=== PATIENT | female | born 1960 | race American Indian/Alaskan Native ===

== ENCOUNTER 2016-09-20 06:45 | Day surgery (SDC) | payer MEDICAID, OTHER | END 2016-09-20 06:46 | disposition home or self-care (01) | LOC: GIO 06:45 | PROVIDERS: ATTEND Internal Medicine Gastroenterology | DX: Z12.11 Encounter for screening for malignant neoplasm of colon (principal); Z87.19 Personal history of other diseases of the digestive system; Z53.8 Procedure and treatment not carried out for other reasons ==

== ENCOUNTER 2016-11-30 08:03 | Inpatient (IN) | payer OTHER ==
--- NOTE | 2016-11-30 08:38 | XRay Report ---
LEFT SHOULDER, 3 VIEWS LEFT HUMERUS, 2 VIEWS History: Pain, injury. Findings: An anterior, inferior dislocation of the right glenohumeral joint is suspected. This may represent a partial dislocation. There is no evidence for fracture or bone lesion. Soft tissues are unremarkable. IMPRESSION: Dislocation or partial dislocation at the left glenohumeral joint.
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
[2016-11-30] MEDS ORDERED: DIPRIVAN 10 MG/ML IV ONE (11:06)
[2016-11-30] MEDS ORDERED: KETALAR IV ONE (11:06)
[2016-11-30] MEDS ORDERED: KETALAR ONE (11:11)
[2016-11-30] MEDS ORDERED: MORPHINE IV ONE (12:17)
--- NOTE | 2016-11-30 12:45 | XRay Report ---
LEFT SHOULDER, ONE VIEW History: Postreduction film. Findings: Partial dislocation versus inferior subluxation of the left glenohumeral joint is unchanged since earlier today at 1127 hrs. Impression: No change.
--- NOTE | 2016-11-30 12:45 | XRay Report ---
LEFT SHOULDER, ONE VIEW History: Postreduction film. Findings: Partial dislocation or inferior subluxation of the left glenohumeral joint is unchanged since earlier today at 0822 hrs. Impression: No change.
--- NOTE | 2016-11-30 12:58 | Admit Criteria Form ---
Admission Criteria Documentation: MUSCULOSKELETAL DISEASE GRG Clinical Indications for Admission to Inpatient Care (Place 'X' for any and all applicable criteria): Hospital admission is needed for appropriate care of the patient because of 1 or more of the following: [X]I. Fracture, dislocation, or other musculoskeletal injury requiring inpatient care(medical) as indicated by 1 or more of the following(4)(5)(6)(7) [ ]a) Vertebral fracture requiring observation for instability or neurologic compromise (8) [ ]b) Compartment syndrome (proven or cannot be ruled out during observation level of care) (9) [ ]c) Limb-threatening injury [ ]d) Major injury requiring inpatient stabilization such as traction initiation or external fixation before internal fixation or closure of complex or open fracture [X]e) Major injury requiring inpatient treatment after emergency or observation level care (as appropriate) []f) Severe pain requiring acute inpatient management [ ]g) Injury with suspicion of abuse or neglect (eg., child, dependent elderly) [ ]II. Newly diagnosed or suspected bone, joint, or orthopedic device infection (e.g., osteomyelitis, septic arthritis) needing 1 or more of the following(1)(2)(3) [ ]a) IV antibiotics that cannot be initiated in other than inpatient setting (e.g., patient too unstable or home infusion not available) [ ]b) Device removal or replacement [ ]c) Bone or soft tissue debridement [ ]d) Joint drainage (drain placement or repetitive aspirations) [ ]III. Severe rheumatologic disease (e.g., systemic lupus erythematosus, rheumatoid arthritis) with complications or comorbidities (Also use Optimal Recovery Care Criteria or General Recovery Criteria as appropriate on the basis of predominant condition), including 1 or more of the following( 10)(11)(12)(13) [ ]a) Severe infection (e.g., LINING SETTER infection, sepsis) (14) [ ]b) Respiratory complications, including 1 or more of the following : [ ]i) Pleural effusion with respiratory compromise [ ]ii) Pulmonary hypertension with congestive failure [ ]iii) Respiratory failure [ ]iv) Pulmonary hemorrhage (15) [ ]c) Hematologic disease, including 1 or more of the following: [ ]i) Coagulopathy with bleeding [ ]ii) Thrombosis with hypercoagulable state [ ]iii) Thrombotic thrombocytopenic purpura [ ]d) Cerebritis with seizures, psychosis, or other severe abnormalities [ ]e) Vertebral destruction with monitoring needed for cervical myelopathy& possible respiratory compromise [ ]f) Exacerbation that requires inpatient treatment (e.g., intravenous immunosuppression) (16) [ ]g) Acute renal failure [ ]h) Cerebritis with seizures, psychosis, Altered mental status, or other neurologic abnormalities [ ]i) Pericardial effusion with tamponade [ ]j) Vertebral destruction, with monitoring needed for cervical myelopathy and possible respiratory compromise [ ]IV. Severe vasculitis with complications or comorbidities (Also use Optimal Recovery Care Criteria General Recovery Criteria as appropriate on the basis of predominant condition), including 1 or more of the following(11)(12)(17)(18)(19)(20) [ ]a) Exacerbation that requires inpatient treatment (e.g., intravenous immunosuppression) (19)(21) [ ]b) Pulmonary hemorrhage (15) [ ]c) LINING SETTER vasculitis with seizures, psychosis, Altered mental status that is severe or persistent, or other severe abnormalities (22) [ ]d) Cerebral infarction [ ]e) Gastrointestinal ischemia [ ]f) Gangrene or threatened amputation [ ]g) Renal failure (16) [ ]h) Other significant complications of vasculitis ( eg., tissue or organ ischemia, organ dysfunction ) [ ]V. Severe myopathy as indicated by 1 or more of the following (28)(29) [ ]a) New onset of airway compromise or inability to swallow [ ]b) Respiratory deterioration with observation needed for impending respiratory failure [ ]c) Exacerbation that requires inpatient treatment (e.g., intravenous immunosuppression) [ ]. Severe crystal gout (arthropathy) indicated by 1 or more of the following (23)(24) [ ]a) Severe pain requiring acute inpatient management [ ]b) Exacerbation that requires inpatient treatment (e.g., intravenous treatment) [ ]VII.Rhabdomyolysis and 1 or more of the following (25)(26)(27) [ ]a) Acute renal failure [ ]b) Need for intravenous hydration after emergency or observation level care (as appropriate) [ ]c) Inability to maintain oral hydration [ ]d) Change in mental status [ ]e) Electrolyte abnormality that remains after emergency or observation level care (as appropriate) [ ]VIII Post amputation complication, as indicated by ANY ONE of the following [ ]a) Infection [ ]b) Dehiscence [ ]c) Myodesis failure [ ]IX. Severe pain requiring acute inpatient management due to musculoskeletal condition [ ]X. Musculoskeletal Disease and ALL of the following: [ ]a) Symptom or finding for which emergency and observation care have failed or are not considered appropriate (Use General Criteria: Observation Care as appropriate) [ ]b) Presence of ANY ONE of the following [ ]i) A General Admission Criteria [ ]ii) A Pediatric General Admission Criteria The original [facility] content created by [facility] has been revised. The portions of the content which have been revised are identified through the use of italic text or in bold, and [facility] has neither reviewed nor approved the modified material. All other unmodified content is copyright [facility]. Please see references footnoted in the original [facility] Admission Criteria Met: Yes
[2016-11-30] MEDS: HEPARIN SUB-Q SCH ×2 (14:00→22:08)
[2016-11-30 14:17] LABS: Basophils % (Auto) 0.5 % (0.0-1.8); Eosinophils % (Auto) 1.1 % (0.0-4.3); Hematocrit 42.3 % (30.3-42.9); Hemoglobin 14.3 gm/dl (10.1-14.3); Mean Corpuscular HGB Conc 34 % (30-34); Mean Corpuscular Hemoglobin 33 pg (28-32); Mean Corpuscular Volume 98 fl (79-97); Platelet Count 200 K/mm3 (140-440); Red Blood Count 4.31 M/mm3 (3.65-5.03); Red Cell Distribution Width 14.5 % (13.2-15.2); White Blood Count 11.5 K/mm3 (4.5-11.0)
[2016-11-30 14:27] LABS: INR 0.96 (0.87-1.13); Partial Thromboplastin Time 23.7 Sec. (24.2-36.6)
[2016-11-30 14:29] LABS: Anion Gap 17 mmol/L; Blood Urea Nitrogen 13 mg/dL (7-17); Carbon Dioxide 26 mmol/L (22-30); Chloride 104.3 mmol/L (98-107); Glucose 86 mg/dL (65-100); Potassium 4.2 mmol/L (3.6-5.0); Sodium 143 mmol/L (137-145)
[2016-11-30] MEDS ORDERED: CARDIZEM CD PO SCH (16:00)
[2016-11-30 16:53] LABS: INR 0.95 (0.87-1.13)
[2016-11-30 17:02] LABS: Alanine Aminotransferase 27 units/L (7-56); Albumin 3.8 g/dL (3.9-5); Alkaline Phosphatase 91 units/L (35-129); Anion Gap 17 mmol/L; Blood Urea Nitrogen 13 mg/dL (7-17); Calcium 9.2 mg/dL (8.4-10.2); Carbon Dioxide 27 mmol/L (22-30); Chloride 102.8 mmol/L (98-107); Glucose 118 mg/dL (65-100); Potassium 4.5 mmol/L (3.6-5.0); Sodium 142 mmol/L (137-145); Total Protein 7.5 g/dL (6.3-8.2)
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
[2016-11-30] MEDS: PERCOCET 5/325 PO PRN (21:05)
[2016-11-30] MEDS: PULMICORT IH SCH (21:36)
[2016-11-30] MEDS: COREG PO SCH (22:05)
[2016-12-01] MEDS: PERCOCET 5/325 PO PRN (04:12)
[2016-12-01] MEDS: HEPARIN SUB-Q SCH ×2 (05:40→14:13)
--- NOTE | 2016-12-01 08:52 | Progress Note ---
Hospitalist Physical - Constitutional Vitals: Temp Pulse Resp BP Pulse Ox 97.1 F L 56 L 18 126/78 97 12/01/16 07:42 12/01/16 07:42 12/01/16 07:42 12/01/16 07:42 12/01/16 07:42 Results - Labs CBC & Chem 7: 11/30/16 13:44 11/30/16 16:23 Labs: Laboratory Last Values WBC 11.5 K/mm3 (4.5-11.0) H 11/30/16 13:44 RBC 4.31 M/mm3 (3.65-5.03) 11/30/16 13:44 Hgb 14.3 gm/dl (10.1-14.3) 11/30/16 13:44 Hct 42.3 % (30.3-42.9) 11/30/16 13:44 MCV 98 fl (79-97) H 11/30/16 13:44 MCH 33 pg (28-32) H 11/30/16 13:44 MCHC 34 % (30-34) 11/30/16 13:44 RDW 14.5 % (13.2-15.2) 11/30/16 13:44 Plt Count 200 K/mm3 (140-440) 11/30/16 13:44 Lymph % (Auto) 19.3 % (13.4-35.0) 11/30/16 13:44 Falls % (Auto) 10.0 % (0.0-7.3) H 11/30/16 13:44 Eos % (Auto) 1.1 % (0.0-4.3) 11/30/16 13:44 Baso % (Auto) 0.5 % (0.0-1.8) 11/30/16 13:44 Lymph # 2.2 K/mm3 (1.2-5.4) 11/30/16 13:44 Falls # 1.1 K/mm3 (0.0-0.8) H 11/30/16 13:44 Eos # 0.1 K/mm3 (0.0-0.4) 11/30/16 13:44 Baso # 0.1 K/mm3 (0.0-0.1) 11/30/16 13:44 Seg Neutrophils % 69.1 % (40.0-70.0) 11/30/16 13:44 Seg Neutrophils # 8.0 K/mm3 (1.8-7.7) H 11/30/16 13:44 PT 13.1 Sec. (12.2-14.9) 11/30/16 16:23 INR 0.95 (0.87-1.13) 11/30/16 16:23 APTT 23.7 Sec. (24.2-36.6) L 11/30/16 13:44 Sodium 142 mmol/L (137-145) 11/30/16 16:23 Potassium 4.5 mmol/L (3.6-5.0) 11/30/16 16:23 Chloride 102.8 mmol/L (98-107) 11/30/16 16:23 Carbon Dioxide 27 mmol/L (22-30) 11/30/16 16:23 Anion Gap 17 mmol/L 11/30/16 16:23 BUN 13 mg/dL (7-17) 11/30/16 16:23 Creatinine 0.5 mg/dL (0.7-1.2) L 11/30/16 16:23 Estimated GFR > 60 ml/min 11/30/16 16:23 BUN/Creatinine Ratio 26.00 % 11/30/16 16:23 Glucose 118 mg/dL (65-100) H 11/30/16 16:23 Calcium 9.2 mg/dL (8.4-10.2) 11/30/16 16:23 Total Bilirubin 0.30 mg/dL (0.1-1.2) 11/30/16 16:23 AST 24 units/L (5-40) 11/30/16 16:23 ALT 27 units/L (7-56) 11/30/16 16:23 Alkaline Phosphatase 91 units/L (35-129) 11/30/16 16:23 Total Protein 7.5 g/dL (6.3-8.2) 11/30/16 16:23 Albumin 3.8 g/dL (3.9-5) L 11/30/16 16:23 Albumin/Globulin Ratio 1.0 % 11/30/16 16:23
[2016-12-01] MEDS: COREG PO SCH (09:38)
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
[2016-12-01] MEDS ORDERED: PEPCID IV SCH (10:00)
[2016-12-01] MEDS ORDERED: THERAGRAN Tab PO SCH (10:00)
[2016-12-01] MEDS ORDERED: K-DUR PO SCH (10:00)
[2016-12-01] MEDS: PULMICORT IH SCH (11:01)
--- NOTE | 2016-12-01 15:00 | Anesthesia Consultation ---
Anesthesia Consult and Med Hx Date of service: 12/01/16 - Airway Anesthetic Teeth Evaluation: Good ROM Head & Neck: Adequate Mental/Hyoid Distance: Adequate Mallampati Class: Class II Intubation Access Assessment: Probably Good - Pulmonary Exam CTA: Yes - Cardiac Exam Cardiac Exam: RRR - Pre-Operative Health Status ASA Pre-Surgery Classification: ASA2 Proposed Anesthetic Plan: General - Pulmonary Hx Smoking: Yes (since age 15,also smokes MJ) Hx Asthma: No COPD: No Hx Pneumonia: No - Cardiovascular System Hx Hypertension: Yes - Central Nervous System Hx Psychiatric Problems: No - Gastrointestinal Hx Ulcer: Yes - Endocrine Hx End Stage Renal Disease: No
--- NOTE | 2016-12-01 15:00 | Anesthesia Day of Surgery ---
Anesthesia Day of Surgery - Day of Surgery Patient Examined: Yes Patient H&P Reviewed: Yes Patient is NPO: Yes
[2016-12-01] MEDS ORDERED: PEPCID PO NR (15:20)
[2016-12-01] MEDS ORDERED: DIPRIVAN 10 MG/ML IV ONE ×2 (15:35→16:13)
[2016-12-01] MEDS ORDERED: SUBLIMAZE ONE (15:36)
[2016-12-01] MEDS ORDERED: NACL 0.9% 1000 ML 1,000 ML IV SCH (16:00)
[2016-12-01] MEDS ORDERED: ePHEDrine SULFATE ONE (16:16)
[2016-12-01] MEDS: DILAUDID IV PRN ×4 (16:45→17:15)
[2016-12-01] MEDS ORDERED: ZOFRAN ONE (16:47)
[2016-12-01] MEDS ORDERED: XYLOCAINE MPF 2% ONE (16:47)
[2016-12-01] MEDS ORDERED: QUELICIN ONE (16:51)
[2016-12-01] MEDS ORDERED: DILAUDID ONE (16:52)
[2016-12-01] MEDS ORDERED: ZOFRAN IV PRN (16:55)
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
[2016-12-01 17:54] VITALS: BP 127/58
--- NOTE | 2016-12-01 18:30 | Post Anesthesia Evaluation ---
- Post Anesthesia Evaluation Patient Participated: Yes Airway Patent: Yes Stable Respiratory Function: Yes Nausea/Vomiting: No Temp > 96.8F: Yes Pain Manageable: Yes Adequeate Hydration: Yes Anesthesia Complications: No Block Receding Appropriately: Not Applicable Patient on Ventilator: No
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
--- NOTE | 2016-12-02 09:42 | XRay Report ---
FLUOROSCOPIC X-RAY LEFT SHOULDER ONE VIEW: 11/30/16 13:04:00 CLINICAL: Close reduction of dislocation. FINDINGS: Normal the humeral alignment with no dislocation. No fracture identified. IMPRESSION: Normal after closed reduction.
== END 2016-12-01 20:00 | disposition home health service (06) | DRG 563 ==
LOC: ED 08:03 → 2B-SURG 13:04
PROVIDERS: ADMIT Family Medicine; ATTEND Internal Medicine
PROC: 0PS6XZZ Reposition Left Scapula, External Approach (ICD-10-PCS; principal; 2016-12-01)
PROC: 3E0234Z Introduction of Serum, Toxoid and Vaccine into Muscle, Percutaneous Approach (ICD-10-PCS; 2016-12-01)
DX: S43.005A Unspecified dislocation of left shoulder joint, initial encounter (principal); I50.20 Unspecified systolic (congestive) heart failure; Z68.44 Body mass index [BMI] 60.0-69.9, adult; J44.9 Chronic obstructive pulmonary disease, unspecified; I11.0 Hypertensive heart disease with heart failure; Z86.718 Personal history of other venous thrombosis and embolism; E66.01 Morbid (severe) obesity due to excess calories; Z88.5 Allergy status to narcotic agent; Z91.013 Allergy to seafood; Z99.81 Dependence on supplemental oxygen; F17.210 Nicotine dependence, cigarettes, uncomplicated; Z23 Encounter for immunization
CPT/HCPCS: 36415; 80048; 80053; 85025; 85610; 85730; 94640; 94760; 96374; 99285; J0330; J1170; J1644; J2270; J2405; J2704; J3010; J7030; L1830

== ENCOUNTER 2017-03-28 09:17 | Day surgery (SDC) | payer MEDICARE ==
[~2017-03-28 09:17] MED LIST: WATER FOR IRRIG STERILE IR ONE
[2017-03-28] MEDS ORDERED: NACL 0.9% 1000 ML 1,000 ML IV SCH (10:00)
[2017-03-28] MEDS ORDERED: WATER FOR IRRIG STERILE IR ONE (10:36)
[2017-03-28] MEDS ORDERED: DIPRIVAN 10 MG/ML IV ONE ×3 (10:46→10:47)
[2017-03-28] MEDS ORDERED: AMIDATE IV ONE (10:47)
--- NOTE | 2017-03-28 10:55 | Anesthesia Consultation ---
Anesthesia Consult and Med Hx Date of service: 03/28/17 - Airway Anesthetic Teeth Evaluation: Good ROM Head & Neck: Adequate Mental/Hyoid Distance: Adequate Mallampati Class: Class II Intubation Access Assessment: Probably Good - Pulmonary Exam CTA: Yes - Cardiac Exam Cardiac Exam: RRR - Pre-Operative Health Status ASA Pre-Surgery Classification: ASA3 Proposed Anesthetic Plan: MAC - Pulmonary Hx Smoking: Yes Hx Asthma: No SOB: Yes (pulmonary hypertension) COPD: No Home Oxygen Therapy: Yes (2L O2 /24hr) Hx Pneumonia: No Hx Sleep Apnea: Yes (cpap) - Cardiovascular System Hx Hypertension: Yes Hx Heart Attack/AMI: No - Central Nervous System Hx Seizures: No CVA: No Hx Psychiatric Problems: No - Gastrointestinal Hx Ulcer: Yes - Endocrine Hx End Stage Renal Disease: No - Other Systems Hx Substance Use: Yes (marijuanna) Hx Obesity: Yes - Additional Comments Anesthesia Medical History Comments: NAC
--- NOTE | 2017-03-28 10:56 | Anesthesia Day of Surgery ---
Anesthesia Day of Surgery - Day of Surgery Patient Examined: Yes Patient H&P Reviewed: Yes Patient is NPO: Yes
--- NOTE | 2017-03-28 11:33 | Short Stay Summary ---
Short Stay Documentation Date of service: 03/28/17 Narrative H&P: Ms Gipson presents for EGD for h/o PUD and screening colonoscopy. She denies new gi complaints at this time. Completed prep overnight. Denies abd pain, gi bleeding, or change in bowel habits. - History H&P: obtained from office Past Medical History: other (per office note) Social history: no significant social history - Allergies and Medications Current Medications: Allergies morphine Allergy (Unknown, Verified 11/30/16 12:38) Rash seafood Allergy (Uncoded 12/24/13 11:19) Swelling Home Medications Medication Instructions Recorded Confirmed Last Taken Type Aspirin [Aspirin BABY CHEW TAB] 81 mg PO QDAY 12/30/14 03/27/17 11/30/16 History Budesonide [Pulmicort Respules] 0.5 mg IH Q12HRT #60 nebu 01/05/15 03/27/17 Unknown Rx Diltiazem Cd [Cardizem CD] 180 mg PO QDAY #30 capsule 01/05/15 03/28/17 Rx Multivitamin Tab [Multiple Vitamin 1 each PO QDAY 11/30/16 03/28/17 03/27/17 History TAB (Theragran)] Potassium Chloride [K-Dur] 20 meq PO QDAY 11/30/16 03/28/17 03/27/17 History Advair 100-50 Diskus 1 puff INHALATION TID 03/27/17 03/28/17 03/27/17 History VENTOLIN Inhaler(NF) 1 puff INHALATION TID 03/27/17 03/28/17 03/26/17 History Hydrochlorothiazide 30 mg PO DAILY 03/28/17 03/28/17 03/27/17 History Active Medications Sodium Chloride (Nacl 0.9% 1000 Ml) 1,000 mls @ 50 mls/hr IV DIRECT HARPAL Last Admin: 03/28/17 10:13 Dose: 50 mls/hr - Physical exam General appearance: no acute distress, obese Lungs: Clear to auscultation Heart: Regular rate, Normal S1, Normal S2 Gastrointestinal: normoactive bowel sounds, obese Extremities: No edema - Brief post op/procedure progress note Date of procedure: 03/28/17 Pre-op diagnosis: h/o PUD, screening colonoscopy Post-op diagnosis: other (EGD: hiatal hernia; colonoscopy: 3 colon polyps ( removed), diverticulosis) Procedure: 1. EGD 2. Colonoscopy with snare polypectomy x 2 and biopsy Anesthesia: MAC Findings: EGD: hiatal hernia, otherwise no significant findings Colonoscopy: 2 polyps at hepatic flexure (< 5 mm), 1 polyp in sigmoid colon ~ 1 cm, removed with hot snare (not retrieved however); diverticulosis Surgeon: KEVON MATTHEWS Estimated blood loss: minimal Pathology: list (Jar A - hepatic flexure polyp x 2) Specimen disposition: to lab Condition: stable - Disposition Condition at discharge: Good Disposition: DC-01 TO HOME OR SELFCARE Short Stay Discharge Plan Follow up with: PRIMARY CARE, [Primary Care Provider] - 7 Days
--- NOTE | 2017-03-28 11:42 | Operative Report ---
Operative Report Operative Report: EGD PROCEDURE NOTE DATE OF PROCEDURE: 03/28/2017 ENDOSCOPIST: Sterling Llanos PRE-OP DIAGNOSIS: history of peptic ulcer disease POST-OP DIAGNOSIS: hiatal hernia, otherwise unremarkable ANESTHESIA: MAC COMPLICATIONS: no immediate complications ESTIMATED BLOOD LOSS: none PROCEDURE: After consent was obtained, the patient was placed in the left lateral decubitus position. The fujinon endoscope was inserted into the patient's mouth under direct vision, and advanced to the 2nd portion of the duodenum without difficulty. The patient tolerated the poorly (retching episodes). The views of the mucosa were fair. The patient's vital signs were monitored continuously throughout the procedure. FINDINGS: There was a hiatal hernia, otherwise the esophagus appeared normal. The stomach and duodenum appeared normal. Detailed views were some what limited due to poor patient tolerance during procedure, however there was no obvious evidence of peptic ulcer disease or other significant findings. IMPRESSION: 1. Hiatal hernia, otherwise unremarkable EGD RECOMMENDATIONS: -continue current medications -colonoscopy to follow
--- NOTE | 2017-03-28 11:47 | Operative Report ---
Operative Report Operative Report: COLONOSCOPY PROCEDURE NOTE DATE OF PROCEDURE: 03/28/2017 ENDOSCOPIST: Sterling Llanos PRE-OP DIAGNOSIS: screening colonoscopy POST-OP DIAGNOSIS: internal hemorrhoids ANESTHESIA: MAC COMPLICATIONS: no immediate complications ESTIMATED BLOOD LOSS: minimal PROCEDURE: After consent was obtained, the patient was placed in the left lateral decubitus position. The fujinon colonoscope was inserted into the rectum under direct vision, and advanced to the cecum without difficulty. The patient tolerated the procedure well. The views of the mucosa were good. The quality of prep was good. The patient's vital signs were monitored continuously throughout the procedure. FINDINGS: There was a < 3 mm sessile polyp in the hepatic flexure. The polyp was removed with cold forceps biopsy and retrieved. There was an ~3-4 mm sessile polyp at the hepatic flexure. The polyp was removed with cold snare polypectomy, and retrieved. There was a ~ 1 cm pedunculated polyp in the sigmoid colon. The polyp was removed with hot snare polypectomy. However, the polyp was unable to be retrieved. Few diverticula in the sigmoid and descending colon. IMPRESSION: 1. Multiple colon polyps (3) removed as above. 2. Diverticulosis RECOMMENDATIONS: -follow-up pathology -avoid NSAID medications for 5 days following polypectomy -high fiber diet daily -repeat colonoscopy in 3 years for surveillance -follow-up in GI clinic as previously scheduled
[2017-03-28 12:14] VITALS: BP 117/84
== END 2017-03-28 09:18 | disposition home or self-care (01) ==
LOC: GIO 09:17
PROVIDERS: ATTEND Internal Medicine Gastroenterology
DX: Z12.11 Encounter for screening for malignant neoplasm of colon (principal); D12.3 Benign neoplasm of transverse colon; K57.30 Diverticulosis of large intestine without perforation or abscess without bleeding; K64.8 Other hemorrhoids; K27.9 Peptic ulcer, site unspecified, unspecified as acute or chronic, without hemorrhage or perforation; K44.9 Diaphragmatic hernia without obstruction or gangrene; I11.0 Hypertensive heart disease with heart failure; I50.9 Heart failure, unspecified; I27.20 Pulmonary hypertension, unspecified; G47.33 Obstructive sleep apnea (adult) (pediatric); E66.9 Obesity, unspecified; Z68.44 Body mass index [BMI] 60.0-69.9, adult; Z79.82 Long term (current) use of aspirin; Z79.899 Other long term (current) drug therapy; Z99.89 Dependence on other enabling machines and devices; Z99.81 Dependence on supplemental oxygen; Z88.6 Allergy status to analgesic agent; Z91.013 Allergy to seafood
CPT/HCPCS: 43235; 45380; 88305; J2704; J7030

== ENCOUNTER 2017-05-02 14:19 | Outpatient (CLI) | payer MEDICARE, OTHER ==
--- NOTE | 2017-05-02 23:34 | XRay Report ---
FINAL REPORT PROCEDURE: XR SHOULDER 2+V LT TECHNIQUE: Left shoulder radiographs including AP views in internal and external rotation and abduction. CPT 21038 HISTORY: PAIN IN LEFT SHOULDER COMPARISON: No prior studies are available for comparison. FINDINGS: Fracture (s) and/or Dislocation(s): None . Joint space(s): There is advanced degenerative arthrosis of the glenohumeral joint. There is no dislocation.. Soft tissues: Normal . Bone mineralization: Normal . Foreign bodies: None . IMPRESSION: There is no fracture or dislocation. There is degenerative arthrosis of the glenohumeral joint.
== END 2017-05-02 14:20 | disposition home or self-care (01) ==
LOC: XRAY 14:19
PROVIDERS: ATTEND Orthopaedic Surgery
DX: M19.012 Primary osteoarthritis, left shoulder (principal); I11.0 Hypertensive heart disease with heart failure; I50.9 Heart failure, unspecified; J44.1 Chronic obstructive pulmonary disease with (acute) exacerbation; F17.200 Nicotine dependence, unspecified, uncomplicated